=== PATIENT | female | born 1995 | race African-American/Black ===

== ENCOUNTER 2018-01-26 21:51 | Emergency (ER) | payer MEDICARE, MEDICAID ==
[~2018-01-26] VITALS: Ht 167.6 cm; Wt 128.6 kg
[~2018-01-26 21:51] MED LIST: BACTRIM DS 8001 TAB PO; CEPHALEXIN500 M1 PO; DESYREL 50MG50 MG PO; HALDOL 1MG T1 MG/TAB PO; INVEGA6 MG PO; IRON325 MG PO; LITHIUM 30300 MG/CAP PO; SEROQUEL 2525 MG/TAB PO; SEROQUEL XR300 MG PO; TOPAMAX 25MG25 M1 PO; VISTARIL 2525 MG/CAP PO; ZYPREXA10 MG PO; ZYPREXA15 MG PO
[2018-01-26 21:55] VITALS: BP 128/85; TEMP 98.1
[2018-01-26] MEDS ORDERED: ATARAX 10MG10 MG/TAB PO (21:58)
[2018-01-26] MEDS ORDERED: INVEGA1.5 MG (21:59)
[2018-01-26] MEDS ORDERED: LITHOBID 3300 MG/TAB PO (22:00)
[2018-01-26 23:20] VITALS: PULSE 88
== END 2018-01-26 23:20 | disposition home or self-care (01) ==
LOC: COL.ER 21:51
DX: J45.909 Unspecified asthma, uncomplicated (principal); F31.9 Bipolar disorder, unspecified
CPT/HCPCS: J8540

== ENCOUNTER 2018-02-26 14:28 | Emergency (ER) | payer MEDICARE, MEDICAID ==
[~2018-02-26] VITALS: Ht 167.6 cm; Wt 150.0 kg
[~2018-02-26 14:28] MED LIST changes: +ATARAX 10MG10 MG/TAB PO; +INVEGA1.5 MG; +LITHOBID 3300 MG/TAB PO
[2018-02-26 14:38] VITALS: TEMP 99
[2018-02-26] MEDS ORDERED: SEPTRA DS 8001 TAB PO (15:18)
[2018-02-26 15:26] VITALS: BP 158/99; PULSE 99
[2018-02-26] MEDS ORDERED: CEPHALEXIN500 M1 PO (15:31)
== END 2018-02-26 15:48 | disposition home or self-care (01) ==
LOC: COL.ER 14:28
DX: L02.811 Cutaneous abscess of head [any part, except face] (principal)

== ENCOUNTER 2018-04-18 09:16 | Emergency (ER) | payer MEDICARE, MEDICAID ==
[~2018-04-18] VITALS: Ht 167.6 cm; Wt 156.8 kg
[~2018-04-18 09:16] MED LIST changes: +SEPTRA DS 8001 TAB PO
[2018-04-18 09:17] VITALS: BP 133/90; TEMP 98.5
[2018-04-18] MEDS ORDERED: NASONEX SPRAY17 GM NS (09:43)
[2018-04-18] MEDS ORDERED: SALINE MIST 4545 ML NS (09:43)
[2018-04-18 09:49] VITALS: PULSE 88
== END 2018-04-18 09:50 | disposition home or self-care (01) ==
LOC: COL.ER 09:16
DX: R09.81 Nasal congestion (principal); F31.9 Bipolar disorder, unspecified; Z98.890 Other specified postprocedural states

== ENCOUNTER 2024-05-20 16:58 | Emergency (ER) | payer MEDICARE ==
[~2024-05-20 16:58] MED LIST changes: +NASONEX SPRAY17 GM NS; +SALINE MIST 4545 ML NS
[2024-05-20 20:50] VITALS: TEMP 98.4
[2024-05-20 22:26] LABS: HEMOGLOBIN 10.8 g/dl (12.5-16.0); MEAN CELL VOLUME 84 fl (80.0-100.0); MEAN CORPUSCULAR HEMOGLOBIN 27 pg (27-31); MEAN CORPUSCULAR HGB CONC 32 g/dl (33.0-37.0); MEAN PLATELET VOLUME 10.1 fl (7.4-10.4); PLATELET COUNT 371 K/mm3 (130-400); RED BLOOD COUNT 3.99 M/mm3 (4.10-5.30); REDCELL DISTRIBUTION WIDTH-CV 14.9 % (11.5-14.5)
[2024-05-20 22:31] LABS: HEMATOCRIT 33.6 % (37.0-47.0)
[2024-05-20 22:33] LABS: ERYTHROCYTE SEDIMENTATION RATE 73 mm/hr (0-20)
[2024-05-20 22:54] LABS: COLLECTION METHOD CLEAN CATCH
[2024-05-20 23:01] LABS: LYMPHOCYTE 47 % (20.0-51.0); NEUTROPHILS 49 % (42.0-75.2); PLATELET ESTIMATE NORMAL (NORMAL)
[2024-05-20 23:02] LABS: ALBUMIN 3.6 g/dL (3.5-5.0); BILIRUBIN,TOTAL 1.3 mg/dL (0.2-1.2); C-REACTIVE PROTEIN 1.17 mg/dL (0.00-0.50); CALCIUM 10.3 mg/dL (8.4-10.2); CREATININE, serum 1.98 mg/dL (0.57-1.11); TOTAL PROTEIN 10.2 g/dl (6.2-8.1)
[2024-05-20 23:02] LABS: PH 5.5 (5.0-8.5); URINE APPEARANCE CLEAR (CLEAR/HAZY); URINE BLOOD 1+ (NEGATIVE); URINE COLOR YELLOW (YELLOW); URINE GLUCOSE NEGATIVE (NEGATIVE); URINE KETONE NEGATIVE (NEGATIVE); URINE NITRATE NEGATIVE (NEGATIVE); URINE PROTEIN(semi-quant) 1+ (NEGATIVE); URINE UROBILINOGEN 0.2 E.U/dL (0.2-1.0)
[2024-05-21 02:32] VITALS: BP 120/75; PULSE 69
== END 2024-05-21 02:32 | disposition left against medical advice (07) ==
LOC: COL.ER 16:58
PROVIDERS: Emergency Medicine
DX: R20.2 Paresthesia of skin (principal); R15.9 Full incontinence of feces; Z53.29 Procedure and treatment not carried out because of patient's decision for other reasons